=== PATIENT | male | born 1985 | race Caucasian/White ===

== ENCOUNTER 2024-06-27 15:24 | Emergency (ER) | payer MEDICAID ==
[~2024-06-27] VITALS: Ht 165.1 cm; Wt 70.0 kg
[2024-06-27 15:26] VITALS: TEMP 36.7; O2SAT 99
[2024-06-27] MEDS: LIDOCAINE HCL 1% 20ML VIAL INFIL ONE (15:58)
[2024-06-27] MEDS: CEFAZOLIN 1000MG PREMIX 50 ML IV ONE (15:58)
[2024-06-27] MEDS: SODIUM CHLORIDE 0.9% 1,000 ML IV ONE (15:58)
[2024-06-27] MEDS ORDERED: TRAM50TA3 MT (17:04)
[2024-06-27] MEDS ORDERED: AMOX1TAB16 MT (17:05)
[2024-06-27] MEDS ORDERED: IBUP-2029 MT (17:06)
[2024-06-27 17:18] VITALS: BP 123/88; PULSE 73; RESP 18; O2SAT 100
== END 2024-06-27 18:06 | disposition home or self-care (01) ==
LOC: ER 15:24
DX: S61.313A Laceration without foreign body of left middle finger with damage to nail, initial encounter (principal); R55 Syncope and collapse; W26.8XXA Contact with other sharp object(s), not elsewhere classified, initial encounter; Y93.89 Activity, other specified; Y92.89 Other specified places as the place of occurrence of the external cause; Y99.8 Other external cause status
CPT/HCPCS: 12002; 96365; 99284; J0690; J3490; J7030; Z7610